=== PATIENT | male | born 1935 | race Caucasian/White ===

== ENCOUNTER 2018-01-13 22:20 | Emergency (ER) | payer MEDICARE, OTHER ==
[2018-01-13 22:56] LABS: HEMOGLOBIN 12.8 g/dL (13.5-17.0); MEAN CORPUSCULAR HEMOGLOBIN 34.6 pg (27.0-33.4); MEAN CORPUSCULAR HGB CONC 34.7 g/dL (32.0-36.0); MEAN CORPUSCULAR VOLUME 100 fl (80-97); PLATELET COUNT 101 10^3/uL (150-450); RED CELL DISTRIBUTION WIDTH 16.3 % (11.5-14.0); WHITE BLOOD COUNT 12.5 10^3/uL (4.0-10.5)
--- NOTE | 2018-01-13 23:00 | ER Document Report ---
ED Medical Screen (RME) - General Chief Complaint: Fall Stated Complaint: SHORTNESS OF BREATH Notes: The patient is an 82-year-old male, past medical history chronic neck and right shoulder pain, COPD (on intermittent home O2), HTN, CHF presents with worsening neck and right shoulder pain since slipping out of his recliner earlier today. PE: Tenderness over right lateral paracervical muscles, no midline tenderness, no anterior chest wall tenderness I have greeted and performed a rapid initial assessment of this patient. A comprehensive ED assessment and evaluation of the patient, analysis of test results and completion of the medical decision making process will be conducted by additional ED providers. TRAVEL OUTSIDE OF THE [place] IN LAST 30 DAYS: No Course - Laboratory Result Diagrams: 01/13/18 22:25 01/13/18 22:25
[2018-01-13 23:02] LABS: ALANINE AMINOTRANSFERASE 42 U/L (21-72); ALBUMIN 3.9 g/dL (3.5-5.0); ALKALINE PHOSPHATASE 78 U/L (38-126); ANION GAP 13 (5-19); ASPARTATE AMINO TRANSFERASE 71 U/L (17-59); BILIRUBIN,DIRECT 0.7 mg/dL (0.0-0.4); BILIRUBIN,TOTAL 2.2 mg/dL (0.2-1.3); BLOOD UREA NITROGEN 110 mg/dL (7-20); CALCIUM 8.9 mg/dL (8.4-10.2); CARBON DIOXIDE 37 mmol/L (22-30); CHLORIDE 85 mmol/L (98-107); GLUCOSE 217 mg/dL (75-110); POTASSIUM 3.8 mmol/L (3.6-5.0); SODIUM 134.8 mmol/L (137-145); TOTAL PROTEIN 6.8 g/dL (6.3-8.2)
--- NOTE | 2018-01-13 23:17 | ER Document Report ---
ED Fall - General Mode of Arrival: Medic Information source: Patient, Relative TRAVEL OUTSIDE OF THE [place] IN LAST 30 DAYS: No <TOLU RUCKER - Last Filed: 01/14/18 03:01> <WANG CONTRERAS - Last Filed: 01/14/18 03:14> - General Chief Complaint: Fall Stated Complaint: SHORTNESS OF BREATH Time Seen by Provider: 01/13/18 23:01 Notes: 82 y.o. male with chronic RT shoulder and back pain presents to the ED via EMS with worsening RT shoulder and back pain. Pt reports falling out of the recliner from sitting position this morning but relative at bedside reports that he has had the worsening pain for the past couple of days, not caused from the fall from chair earlier today. Pt reports some intermittent trouble breathing and SOB when he lies flat. Relative also reports bilateral lower extremity edema that has been present for the past couple of days and he reports that the pt has been needing help getting up out of the recliner recently. Pt also notes some constipation for which he has taken Miralax today. He denies any CP. 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 Relative at bedside reports that he has been taken off of Lasix and was told to take it only when there is edema to his lower extremities. Pt denies any know kidney issues. 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 (TOLU RUCKER) Past Medical History - General Information source: Patient - Social History Smoking Status: Former Smoker Chew tobacco use (# tins/day): No Frequency of alcohol use: None Drug Abuse: None Patient has suicidal ideation: No Patient has homicidal ideation: No Renal/ Medical History: Denies: Hx Peritoneal Dialysis <TOLU RUCKER - Last Filed: 01/14/18 03:01> - Social History Family History: Reviewed & Not Pertinent <WANG CONTRERAS - Last Filed: 01/14/18 03:14> Review of Systems - Review of Systems Constitutional: See HPI, Weakness - needing help getting out of chair EENT: No symptoms reported Cardiovascular: Edema. denies: Chest pain Respiratory: See HPI, Short of breath Gastrointestinal: See HPI, Constipation Genitourinary: No symptoms reported Male Genitourinary: No symptoms reported Musculoskeletal: See HPI, Back pain, Joint pain - RT shoulder Skin: No symptoms reported Hematologic/Lymphatic: No symptoms reported Neurological/Psychological: No symptoms reported -: Yes All other systems reviewed and negative <TOLU RUCKER - Last Filed: 01/14/18 03:01> Physical Exam <TOLU RUCKER - Last Filed: 01/14/18 03:01> <WANG CONTRERAS - Last Filed: 01/14/18 03:14> - Vital signs Vitals: Temp Resp Pulse Ox 98.4 F 13 95 01/13/18 22:27 01/13/18 22:27 01/13/18 22:27 - Notes Notes: PHYSICAL EXAM GENERAL: Alert, interacts well. No acute distress. HEAD: Normocephalic, atraumatic. EYES: Pupils equal, round, and reactive to light. Extraocular movements intact. ENT: Oral mucosa moist, tongue midline. NECK: Full range of motion. Supple. Trachea midline. LUNGS: Crackles [address] the lung anthony. No expiratory wheezes. Appears SOB after the excertion of sitting up. Pt is on 1 liter of oxygen in room with a pulseoxemeter O2 level of 93%. HEART: Regular rate and rhythm. No murmurs, gallops, or rubs. ABDOMEN: Soft, non-tender. Non-distended. Bowel sounds present in all 4 quadrants. No guarding, rebound, or rigidity. Ecchymosis to abd. EXTREMITIES: 2+ pitting edema to feet, no edema to legs. Radial and dorsalis pedis pulses 2/4 bilaterally. TTP RT clavicle and RT anterior shoulder. Ecchymosis to upper extremities. NEUROLOGICAL: Alert and oriented x3. Normal speech. PSYCH: Normal affect, normal mood. SKIN: Warm, dry, normal turgor. Ecchymosis to abd and upper extremities. ( TOLU RUCKER) Course - Laboratory Result Diagrams: 01/13/18 22:25 01/13/18 22:25 <TOLU RUCKER - Last Filed: 01/14/18 03:01> - Laboratory Result Diagrams: 01/13/18 22:25 01/13/18 22:25 <WANG CONTRERAS - Last Filed: 01/14/18 03:14> - Re-evaluation Re-evalutation: 01/14/18 01:34 CBC shows leukocytosis 12.5, anemia with hemoglobin 12.8, platelets somewhat low at 101, chemistries slightly low sodium at 134.8, acute on chronic renal failure with a BUN of 110 and creatinine of 2.03, glucose elevated consistent with known history of diabetes at 217, total and direct bilirubin elevated at 2.2 and 0.7, patient does not have any nausea or abdominal pain, no tenderness on palpation. Creatinine elevated at 213, troponin elevated at 0.124, proBNP elevated at 5100, chest x-ray consistent with pulmonary edema, radiology reads it is bilateral pneumonia versus atelectasis however given his physical examination and laboratory findings I feel this is more likely dependent pulmonary edema, lumbar spine x-ray does show degenerative changes and possible enlargement of the abdominal aorta, CT angiogram of the aorta is suggested by radiology, this can be done as an outpatient as he does not have any symptoms of abdominal aortic aneurysm that has ruptured on examination. Right shoulder x -ray does not show any acute trauma only chronic degenerative disease. EKG is nonischemic. Given Lasix IV, no indication for IV nitroglycerin at present, only mild respiratory distress in bed, but worsens with exertion of sitting up. Given the positive troponin patient may need a heart catheterization should his troponin continue to trend upwards, currently patient cannot stay at this facility for catheterization as his creatinine is >2 and his EF is approximately 15%. 01/14/18 01:[address] Nic Causey from [facility], accepts patient in transfer. Requests transfer summary. No bed assignment yet. 01/14/18 01:39 01/14/18 03:13 Bed has been assigned, transport is on the way. Brothers aware, brother will be going home now. (WANG CONTRERAS) - Vital Signs Vital signs: Temp Pulse Resp BP Pulse Ox 98.4 F 15 103/81 95 01/13/18 22:27 01/14/18 02:31 01/14/18 02:31 01/14/18 02:31 - Laboratory Laboratory results interpreted by me: 01/13/18 01/13/18 01/13/18 22:25 22:25 22:25 WBC 12.5 H RBC 3.70 L Hgb 12.8 L Hct 37.0 L MCV 100 H MCH 34.6 H RDW 16.3 H Plt Count 101 L Seg Neuts % (Manual) 85 H Lymphocytes % (Manual) 6 L Abs Neuts (Manual) 11.1 H Sodium 134.8 L Chloride 85 L Carbon Dioxide 37 H BUN 110 H Creatinine 2.03 H Est GFR ( Amer) 38 L Est GFR (Non-Af Amer) 32 L Glucose 217 H Total Bilirubin 2.2 H Direct Bilirubin 0.7 H AST 71 H Creatine Kinase 213 H NT-Pro-B Natriuret Pep 01/13/18 22:25 WBC RBC Hgb Hct MCV MCH RDW Plt Count Seg Neuts % (Manual) Lymphocytes % (Manual) Abs Neuts (Manual) Sodium Chloride Carbon Dioxide BUN Creatinine Est GFR ( Amer) Est GFR (Non-Af Amer) Glucose Total Bilirubin Direct Bilirubin AST Creatine Kinase NT-Pro-B Natriuret Pep 5100 H - EKG Interpretation by Me Additional EKG results interpreted by me: 01/14/18 01:35 EKG shows sinus rhythm at a rate of 81, right bundle branch block, occasional PVC, no ST segment elevations or depressions, nonspecific T-wave flattening with some inversions in V2 through V5 per my interpretation. (WANG CONTRERAS) Discharge <TOLU RUCKER - Last Filed: 01/14/18 03:01> <WANG CONTRERAS - Last Filed: 01/14/18 03:14> - Discharge Clinical Impression: Elevated troponin Acute on chronic renal failure Qualifiers: Acute renal failure type: unspecified Chronic kidney disease stage: unspecified stage Qualified Code(s): N17.9 - Acute kidney failure, unspecified Acute congestive heart failure Qualifiers: Heart failure type: unspecified Qualified Code(s): I50.9 - Heart failure, unspecified Condition: Fair Disposition: formerly [facility] Referrals: GABRIEL SPRING MD [Primary Care Provider] - Follow up as needed Scribe Attestation: 01/14/18 01:38 I personally performed the services described in the documentation, reviewed and edited the documentation which was dictated to the scribe in my presence, and it accurately records my words and actions. (WANG CONTRERAS) Scribe Documentation - Scribe Written by Scribe:: Mabel Amaya 01/13/18 [id number] acting as scribe for :: Rebecca <TOLU RUCKER - Last Filed: 01/14/18 03:01>
[2018-01-13 23:22] LABS: ABSOLUTE LYMPHOCYTES# (MANUAL) 0.8 10^3/uL (0.5-4.7); ABSOLUTE MONOCYTES # (MANUAL) 0.5 10^3/uL (0.1-1.4); ABSOLUTE NEUTROPHILS# (MANUAL) 11.1 10^3/uL (1.7-8.2); BAND NEUTROPHILS % (MANUAL) 4 % (3-5); BASOPHILS % (MANUAL) 0 % (0-2); EOSINOPHILS % (MANUAL) 1 % (0-6); LYMPHOCYTES % (MANUAL) 6 % (13-45); MONOCYTES % (MANUAL) 4 % (3-13); SEGMENTED NEUTROPHILS % (MAN) 85 % (42-78); TOTAL CELLS COUNTED 100
[2018-01-13] MEDS ORDERED: FUROSEMIDE INJ/PF 40 MG/4 ML SDV IV ONE (23:25)
[2018-01-13] MEDS ORDERED: ASPIRIN 325 MG TABLET PO ONE (23:25)
[2018-01-13 23:27] LABS: ANISOCYTOSIS 1+; HYPOCHROMASIA SLIGHT; POLYCHROMASIA 1+; TOXIC GRANULATION 1+; TOXIC VACUOLATION PRESENT
[2018-01-13 23:28] LABS: PLATELET COMMENT DECREASED
--- NOTE | 2018-01-13 23:59 | EKG REPORT ---
SEVERITY:- ABNORMAL ECG - SINUS OR ECTOPIC ATRIAL RHYTHM ATRIAL PREMATURE COMPLEX RIGHT BUNDLE BRANCH BLOCK : Confirmed by: Skyler Dinero 13-Jan-2018 23:59:04
--- NOTE | 2018-01-14 01:09 | RADIOLOGY REPORT (SQ) ---
EXAM DESCRIPTION: XR LUMBAR SPINE ANTEROPOSTERIOR, LATERAL, AND OBLIQUES COMPLETED DATE/TME: 01/13/2018 23:25 CLINICAL HISTORY: 82 years Male, SOB, crackles, fall COMPARISON: CT, October 04, 2015, report only TECHNIQUE/LIMITATION: No Limitation. FINDINGS: Moderate vacuum disc desiccation of the lumbar spine, moderate lower lumbar spondylosis, atherosclerosis, diffuse demineralization. Normal alignment and curvature. Possible 4.3 cm diameter abdominal aortic aneurysm. IMPRESSION: Possible 4.3 cm AAA increased compared with prior 3.6 cm measurement described on CT from September 2015. Recommend CTA of the abdominal aorta.
--- NOTE | 2018-01-14 01:12 | RADIOLOGY REPORT (SQ) ---
EXAM DESCRIPTION: XR SHOULDER 2 OR MORE VIEWS COMPLETED DATE/TME: 01/13/2018 23:25 CLINICAL HISTORY: 82 years Male, SOB, crackles, fall COMPARISON: None. 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 Moderate chondrocalcinosis. Bones, joints, and soft tissues of the XR SHOULDER 3 VIEWS appear intact. Prominent interstitium. IMPRESSION: No acute findings.
--- NOTE | 2018-01-14 01:13 | RADIOLOGY REPORT (SQ) ---
EXAM DESCRIPTION: XR CHEST 2 VIEWS COMPLETED DATE/TME: 01/13/2018 23:25 CLINICAL HISTORY: 82 years Male, SOB, crackles COMPARISON: None. FINDINGS: Moderate lung volume, small bilateral lower lobar streaky and bandlike opacity, moderately enlarged cardiac silhouette, atherosclerosis, cardiac hardware, left cardiac stability with leads, right upper thoracic clips. IMPRESSION: Small bilateral lower lobar pneumonia/atelectasis.
[2018-01-14 03:50] VITALS: BP 99/64
== END 2018-01-14 04:00 | disposition short-term general hospital (02) ==
LOC: ER 22:20
DX: I50.9 Heart failure, unspecified (principal); N17.9 Acute kidney failure, unspecified; N18.9 Chronic kidney disease, unspecified; R79.89 Other specified abnormal findings of blood chemistry; E11.65 Type 2 diabetes mellitus with hyperglycemia; E87.1 Hypo-osmolality and hyponatremia; D64.9 Anemia, unspecified; R06.02 Shortness of breath; D72.829 Elevated white blood cell count, unspecified; M25.511 Pain in right shoulder; M54.9 Dorsalgia, unspecified; R53.1 Weakness; R60.0 Localized edema; K59.00 Constipation, unspecified; W07.XXXA Fall from chair, initial encounter; Z95.810 Presence of automatic (implantable) cardiac defibrillator; Z87.891 Personal history of nicotine dependence; Z79.899 Other long term (current) drug therapy
CPT/HCPCS: 93005; 99285; 96374; 36415; 82550; 85025; 80053; 84484; 83880; 71046; 72110; 73030; 93010; A9270; J1940